=== PATIENT | male | born 1935 ===

== ENCOUNTER 2025-03-05 06:00 | Day surgery (SDC) | payer OTHER ==
[2025-03-05] MEDS ORDERED: ONDANSETRON HCL 2 MG/ML VIAL IV ONE (09:00)
[2025-03-05] MEDS ORDERED: fentaNYL CITRATE 50 MCG/ML AMPUL IV PUSH ONE (09:00)
[2025-03-05] MEDS ORDERED: MIDAZOLAM HCL 2 MG/2 ML VIAL IV ONE (09:00)
== END 2025-03-05 10:10 | disposition home or self-care (01) ==
LOC: AMB-ENDOS 06:00
PROVIDERS: ATTEND Colon & Rectal Surgery
DX: C20 Malignant neoplasm of rectum (principal)